=== PATIENT | male | born 1940 | race Caucasian/White ===

== ENCOUNTER 2024-06-06 10:13 | Outpatient (AMB) | payer MEDICARE, SELFPAY ==
--- NOTE | 2024-06-06 10:16 | A.OFFVIS_ITS ---
Vital Signs 06/06/24 10:20 Height 5 ft 5 in Weight 227 lb 2 oz BMI 37.8 BP 127/67 Blood Pressure Location Rt brachial Position Standing Pulse 62 Pulse Source Pulse Oximeter Pulse Oximetry (%) 97 Oxygen Delivery Method Room Air Intake Visit Reasons: Neck & Shoulder Pain w/ Numbness Intake Note: Pain today 03/31 Director Of Public Safety Required: No Accompanied by: Self / Same As Patient Allergies No Known Allergies Allergy (Verified 06/06/24 10:20) Medication List - Last Reconciled 06/06/24 by MAXIMUS Roman albuterol sulfate 90 mcg/actuation inhalation carvedilol mg PO multivitamin (One Daily Multivitamin tablet) 1 tab PO DAILY omeprazole 20 mg PO DAILY sacubitril-valsartan 24-26 mg (Entresto) 1 tab PO BID simvastatin mg PO spironolactone mg PO tamsulosin mg PO trazodone mg PO HPI HPI Neck & Shoulder Pain w/ Numbness: Details: PT- [facility] 3 months ago Location: neck radiates down left arms Duration: years Characteristics of symptom or complaint: numbness, tingling, pins and needles, aching Aggravating or associated factors: sleeping, Treatment: PT, HPI Comments Details: The patient is an 84-year-old male presenting for initial evaluation of neck and left shoulder pain with numbness and tingling in the left upper extremity, particularly during nighttime or when assuming specific positions. Denies any recent or past trauma, injury or falls. He is right hand dominant. The symptoms have persisted for a couple of years with exacerbation upon lying on the left shoulder or left side or applying pressure to the shoulder and elbow. His medical history is significant for bilateral shoulder and knee arthroplasties due to osteoarthritis, and bradycardia and cardiomyopathy management. The patient experiences neck and left shoulder discomfort with radiation into his left thumb, 2nd and 3rd fingers pain with numbness and tingling. He occasionally experiences similar symptoms with his right hand and fingers. Patient reports i ncreased left upper extremity paresthesia at the elbow and wrist if he flexes his left elbow and presses against hard surfaces, or holds his phone for over one minute or less. Reports functional discomfort but maintains activity without need for regular analgesics. Physical therapy has provided temporary relief of muscle tightness, now recurrent intermittently. Denies any fever or chills, shortness of breaths, chest pain or tightness, rash, swelling, gait instability or imbalances, bladder or bowel dysfunction or saddle anesthesia. Reports increased left upper extremity weakness with dropping objects with numbness and tingling of his left arm and hand. Patient reports he also undergoes Orthopedic provider at [facility] and might undergo left shoulder MRI for his ongoing symptoms. Oswestry Neck Disability Index Score=4 - Onset and Timing: Progressive over years, primarily nighttime - Quality and Character: Numbness and tingling at left elbow and left wrist and left thumb, 2-3rd digits - Location: Entire left arm, shoulder, extends to trapezius and cervical paraspinals on the left - Exacerbating Factors: Lying on left side, pressure on shoulder/elbow - Relieving Factors: Lifting arms above head, physical therapy, activity modifications - Interference: Nighttime discomfort, interrupted sleep - Affect: Patient describes irritation, especially impacting sleep, but no significant mood disturbances reported - Analgesia: Occasional Tylenol; no regular use of pain medication reported - Adverse Effects: Patient denies taking other medications or experiencing side effects - Activities of Daily Living: No significant limitation reported, remains active though with sleep disturbances - Aberrant Drug Related Behaviors: None reported, patient uses medications as directed [facility] Medical History (Updated 06/06/24 @ 16:13 by MAXIMUS Roman) Insomnia Thrombocytopenia Thoracic aortic ectasia History of prostatism Hx MRSA infection GERD (gastroesophageal reflux disease) Colon polyp Hypertension Hyperlipidemia Asthma Cardiomyopathy Osteoarthritis Chronic left shoulder pain Surgical History Hx of hernia repair (~1999) History of right shoulder replacement (~2009) History of left shoulder replacement (~2009) History of left knee replacement (~2015) H/O stapedectomy (~2016) Social History Alcohol intake: never Patient Tobacco Use Status: Never used Tobacco Review of Systems Const Details: - Nervous System: Reports left upper extremity numbness and tingling, denies neck or shoulder pain - Musculoskeletal: Reports shoulder tightness, left fingers discomfort due to arthritis - Cardiovascular: Reports history of cardiomyopathy and low pulse rate, denies dizziness All systems reviewed & are unremarkable except as noted in HPI and below Physical Exam Vital Signs: Last Vital Signs Pulse 62 06/06/24 10:20 BP 127/67 06/06/24 10:20 Pulse Ox 97 06/06/24 10:20 Oxygen Delivery Method Room Air 06/06/24 10:20 BMI result Body Mass Index 37.8 General: Appears afebrile. Alert and oriented. Mood and affect appropriate. Follows and participates in conversation appropriately. Respiratory effort is unlabored. No cough. Able to transition from sit to stand unassisted. Ambulates with bilaterally normal heel strike and toe off. Neck Neck: Yes normal visual inspection, Yes full ROM, Yes no lymphadenopathy, Yes supple, No anterior neck swelling, Yes no JVD, No prominent supraclavicular fat pad and No prominent dorsocervical fat pad Back/Spine/Pelvis Cervical Spine: cervical ROM normal, cervical muscular tenderness, No Cervical spine scars present, No cervical spasm, No Cervical spine tenderness and No step off deformity Thoracic/Lumbar Spine: thoracic and lumbar spine normal to inspection, thoraco- lumbar ROM normal, No thoracic spinal tenderness and No lumbar spinal tenderness Neuro General: moves all extremities, Normal light touch and pain sensation, no focal motor deficits, CN's II-XI intact bilaterally and deep tendon reflexes 2+ bilaterally Extrem General: Yes capillary refill normal, Yes no clubbing, cyanosis or edema and Yes no calf tenderness Left upper extremity: shoulder/upper arm Details: inspection abnormal, tenderness Location: over the biceps tendon and normal ROM; no swelling, no ecch ymosis, no crepitus and no unsual warmth Assessment & Plan Assessment & Plan (1) Cervical radiculitis: Code(s): M54.12 - Radiculopathy, cervical region Category: Medical (2) Carpal tunnel syndrome on left: Code(s): G56.02 - Carpal tunnel syndrome, left upper limb Category: Medical (3) Chronic left shoulder pain: Code(s): M25.512 - Pain in left shoulder; G89.29 - Other chronic pain Category: Medical (4) Cervical radiculitis: Code(s): M54.12 - Radiculopathy, cervical region Category: Medical (5) Carpal tunnel syndrome on left: Code(s): G56.02 - Carpal tunnel syndrome, left upper limb Category: Medical (6) Numbness and tingling of left upper extremity: Code(s): R20.0 - Anesthesia of skin; R20.2 - Paresthesia of skin Category: Medical Plan An EMG study is planned to investigate left upper extremity numbness and tingling, with a differential including carpal tunnel syndrome, ulnar neuropathy, and cervical radiculopathy. The EMG will help localize nerve compression and guide specific treatment considerations. The absence of immediate shoulder pathology was communicated, with plans to follow up with Orthopedic care based on diagnostic findings. Ongoing sleep disturbances should be addressed post-EMG findings. Script provided for gabapentin 100 mg TID. Side effects and precautions were discussed with patient. All questions and concerns have been answered and patient agreed with the plan. Follow up for EMG results and sooner as needed. Patient was informed and verbally consented to the use of an ambient scribe for clinic note documentation during this visit. Orders: Orders NE electromyogram (EMG) Today G56.02 - Carpal tunnel syndrome, left upper limb, G89.29 - Other chronic pain, M25.512 - Pain in left shoulder, M54.12 - Radiculopathy, cervical region NE nerve conduction velocity Today G56.02 - Carpal tunnel syndrome, left upper limb, G89.29 - Other chronic pain, M25.512 - Pain in left shoulder, M54.12 - Radiculopathy, cervical region Medications: New gabapentin 100 mg PO TID 90 caps 0RF pain 30 days G56.02 - Carpal tunnel syndrome, left upper limb, M54.12 - Radiculopathy, cervical region Patient Instructions: I discussed with the patient the likely diagnoses of carpal tunnel syndrome or ulnar neuropathy contributing to his nighttime upper extremity numbness. The suggested next step involves an EMG study, which will localize the nerve compression and inform targeted treatment approaches. Risks, benefits, and alternatives of further neurological testing were thoroughly discussed, including the noninvasive nature of the EMG and potential direct benefits in identifying the exact nerve impacted. Coordination with Orthopedics following the EMG was outlined should surgical options or further interventions be warranted. The patient understood and was agreeable with the plan; with a prompt follow-up post-results also arranged. Coding Level of Care Code New Pt Level 4 (94171) Complex EM visit Add On G2211 Diagnoses Cervical radiculitis M54.12 Carpal tunnel syndrome on left G56.02 Chronic left shoulder pain M25.512; G89.29 Numbness and tingling of left upper extremity R20.0; R20.2
[2024-06-06 10:20] VITALS: BP 127/67; PULSE 62; O2SAT 97; BMI 37.8
--- OUTSIDE RECORDS SUMMARY | 2024-06-06 11:47 | XMS_ITS | Clinical Summary ---
Author Organization [address] [place] [address] [place] [phone] Phone Care Team Providers Care Prosecuting Attorney Name Role Phone Feliciano Yang MD Primary Care Provider [phone] [phone] Allergies No known active allergies Medications aspirin 81 mg EC tablet Take 1 Tablet by mouth daily. 12/24/2021 Active B complex tablet Take by mouth daily. Active carvediloL (COREG) 3.125 mg tablet Take 1 Tablet by mouth 2 times daily. Active sacubitriL-valsa rtan (Entresto) 24-26 mg per tablet Take 24-26 mg by mouth 2 times daily. 07/16/2021 Active simvastatin (ZOCOR) 10 mg tablet Take 10 mg by mouth at bedtime. Active spironolactone (ALDACTONE) 25 mg tablet Take 1 Tablet by mouth daily. Active tamsulosin (FLOMAX) 0.4 mg 24 hr capsule Take 0.4 mg by mouth daily. Take 30 mins after same meal every day. Active Active Problems Problem Noted Date Diagnosed Date Ascending aortic aneurysm 07/16/2021 Bradycardia by electrocardiogram 05/07/2021 Cardiomyopathy 05/07/2021 Hyperlipidemia 05/07/2021 PAC (premature atrial contraction) 05/07/2021 Pain in both lower extremities 05/07/2021 Primary hypertension 05/07/2021 PVC (premature ventricular contraction) 05/07/19 22 Encounters Date Type Department Care Team Description 03/21/2024 Telephone [facility] Cardiology [facility] [address] [place] [phone] Jorge Luis Jeffery MD Nuclear Study Results 03/20/2024 Telephone [facility] [address] [place] [phone] Jorge Luis Jeffery MD Results from Last 3 Months Social History Tobacco Use Types Packs/Day Years Used Date Smoking Tobacco: Never Smokeless Tobacco: Never Alcohol Use Standard Drinks/Week Comments Never 0 (1 standard drink = 0.6 oz pur e alcohol) Sex and Gender Information Value Date Recorded Sex Assigned at Not on file Legal Sex Male 6:14 AM EST Gender Identity Not on file Sexual Orientation Not on file Obstetrics History Last Filed Vital Signs Vital Sign Reading Time Taken Comments Blood Pressure 110/58 10/26/2023 2:33 PM EDT Pulse 45 10/26/2023 2:33 PM EDT Temperature - - Respiratory Rate - - Oxygen Saturation - - Inhaled Oxygen Concentration - - Weight 103 kg (228 lb) 03/06/2024 9:51 AM EST Height 167.6 cm (5' 6 ) 03/06/2024 9:51 AM EST Body Mass Index 36.8 03/06/2024 9:51 AM EST Plan of Treatment Upcoming Encounters Date Type Department Care Team (Late st Contact Info) Description 07/24/2024 9:50 AM EDT Office Visit [facility] [address] [place] [phone] Jorge Luis Jeffery MD [address] [place] [address],[address] [address] Health Maintenance Due Date Last Done Comments Zoster Vaccines (1 of 2) 1992 RSV Immunization Patients 60+ Years Old (1 - 1-dose 75+ series) 2017 Cholesterol Screening (Lipid Panel) 02/22/2022 Depression Screening 02/22/2022 Falls Risk Assessment 02/22/2022 Social Influencers of Health Screening 02/22/2022 Hypertension/CHF/CAD Annual BMP Blood Test 03/01/2022 Medicare Annual Wellness Visit 07/28/2022 07/28/2021 COVID-19 Vaccine ( season) 2023 04/16/2021, 03/19/2021 Influenza Vaccine (#1) 2023 , 12/13/2020, 12/06/2019 DTaP,Tdap,and Td Vaccines (2 - Td or Tdap) 10/22/2032 10/22/2022 Pneumococcal Vaccine: 50+ Years Completed 07/25/2020, 03/20/2020, 03/20/2014, Additional history exists HIB Vaccines Aged Out No longer eligi ble based on patient's age to complete this topic HPV Vaccines Aged Out No longer eligi ble based on patient's age to complete this topic Hepatitis A Vaccines Aged Out No long er eligible based on patient's age to complete this topic Hepatitis B Vaccines Aged Out No long er eligible based on patient's age to complete this topic IPV Vaccines Aged Out No longer eligi ble based on patient's age to complete this topic MMR Vaccines Aged Out No longer eligi ble based on patient's age to complete this topic Meningococcal ACWY Vaccine Aged Out N o longer eligible based on patient's age to complete this topic Meningococcal B Vacine Aged Out No lo nger eligible based on patient's age to complete this topic RSV Immunization Patients Under 20 months Aged Out No longer eligible based on patient's age to complete this topic Varicella Vaccines Aged Out No longer eligible based on patient's age to complete this topic Insurance MEDICARE AARP Care Teams Prosecuting Attorney Relationship Specialty Start Date End Date Feliciano Yang MD [address] [place], [place] PCP - General Internal Medicine 05/02/21
== END 2024-06-06 10:54 | disposition home or self-care (01) ==
PROVIDERS: PCP Internal Medicine; Referring Provider Physician Assistant Medical; Visit Provider Nurse Practitioner Family
DX: M54.12 Radiculopathy, cervical region (principal); M25.512 Pain in left shoulder; G89.29 Other chronic pain; R20.0 Anesthesia of skin; R20.2 Paresthesia of skin
CPT/HCPCS: 99204; G2211

== ENCOUNTER → 2024-06-06 10:13 | Outpatient (BNVA) | payer MEDICARE, SELFPAY | PROVIDERS: PCP Internal Medicine; Referring Provider Physician Assistant Medical; Visit Provider Nurse Practitioner Family | DX: M54.12 Radiculopathy, cervical region (principal); M25.512 Pain in left shoulder; G56.02 Carpal tunnel syndrome, left upper limb; G89.29 Other chronic pain; R20.0 Anesthesia of skin; R20.2 Paresthesia of skin | CPT/HCPCS: 99202 ==

== ENCOUNTER 2024-06-30 12:37 | Outpatient (REF) | payer MEDICARE, SELFPAY ==
--- NOTE | 2024-06-30 12:44 | EMG_ITS ---
Chief complaint: Left 1st and 2nd digit numbness, denies numbness or right, denies neck pain Reason for referral: Evaluate for Carpal Tunnel Syndrome versus radiculopathy Referred by: Candace Leong NP Procedure done: Bilateral upper extremities NCS/EMG Precautions and/or limitations: None The limb temperature was monitored continuously and remained between 32-36 degrees C during the performance of the NCS. Nerve Conduction Studies Anti Sensory Summary Table ?Stim Site NR Onset (ms) Norm Onset (ms) Peak (ms) Norm Peak (ms) O-P Amp (?V) Norm O-P Amp Site1 Site2 Delta-0 (ms) Dist (cm) Seb (m/s) Norm Seb (m/s) Left Median Anti Sensory (2nd Digit) Wrist ? 3.9 4.7 <3.6 4.9 >10 Wrist 2nd Digit 3.9 14.0 36 Right Median Anti Sensory (2nd Digit) Wrist ? 3.0 3.8 <3.6 6.4 >10 Wrist 2nd Digit 3.0 21.5 72 Left Radial Anti Sensory (Thumb) Forearm ? 1.4 2.3 <3.1 20.9 Forearm Thumb 1.4 0.0 Left Ulnar Anti Sensory (5th Digit) Wrist ? 1.4 3.6 <3.7 17.5 >15.0 Wrist 5th Digit 1.4 14.0 100 Right Ulnar Anti Sensory (5th Digit) Wrist ? 2.0 3.7 <3.7 9.0 >15.0 Wrist 5th Digit 2.0 14.0 70 Motor Summary Table ?Stim Site NR Onset (ms) Norm Onset (ms) O-P Amp (mV) Norm O-P Amp iAmp (mV) Amp (1st) (%) Site1 Site2 Delta-0 (ms) Dist (cm) Seb (m/s) Norm Seb (m/s) Left Median Motor (Abd Poll Brev) Wrist ? 7.6 <3.9 3.7 >4.5 4.4 100.0 Elbow Wrist 5.8 20.5 35 >45 Elbow ? 13.4 3.4 3.9 91.9 Right Median Motor (Abd Poll Brev) Wrist ? 4.5 <3.9 8.2 >4.5 10.3 100.0 Elbow Wrist 4.4 22.0 50 >45 Elbow ? 8.9 7.0 8.8 85.4 Left Ulnar Motor (Abd Dig Minimi) Wrist ? 2.9 <3.0 8.4 >5 10.1 100.0 B Elbow Wrist 4.0 20.0 50 >45 B Elbow ? 6.9 8.3 10.1 98.8 A Elbow B Elbow 1.8 10.0 56 >45 A Elbow ? 8.7 8.3 10.1 98.8 Right Ulnar Motor (Abd Dig Minimi) Wrist ? 3.0 <3.0 7.7 >5 9.6 100.0 B Elbow Wrist 3.8 19.0 50 >45 B Elbow ? 6.8 7.6 9.3 98.7 A Elbow B Elbow 1.6 10.0 62 >45 A Elbow ? 8.4 7.4 8.9 96.1 EMG ?Side Muscle Nerve Root Ins Act Fibs Psw Amp Dur Poly Recrt Int Pat Comment Right 1stDorInt Ulnar C8-T1 Nml Nml Nml Nml Nml 0 Nml Complete Right FlexCarRad Median C6-7 Nml Nml Nml Nml Nml 0 Nml Complete Right Biceps Musculocut C5-6 Nml Nml Nml Nml Nml 0 Nml Complete Right Triceps Radial C6-7-8 Nml Nml Nml Nml Nml 0 Nml Complete Right Deltoid Axillary C5-6 Nml Nml Nml Nml Nml 0 Nml Complete Left 1stDorInt Ulnar C8-T1 Nml Nml Nml Nml Nml 0 Nml Complete Left FlexCarRad Median C6-7 Nml Nml Nml Nml Nml 0 Nml Complete Left Biceps Musculocut C5-6 Nml Nml Nml Nml Nml 0 Nml Complete Left Triceps Radial C6-7-8 Nml Nml Nml Nml Nml 0 Nml Complete Left Deltoid Axillary C5-6 Nml Nml Nml Nml Nml 0 Nml Complete FINDINGS: Left median motor nerve showed prolonged distal latency, small amplitude and slow conduction velocity. Right median motor nerve showed prolonged distal latency, normal amplitude and normal conduction velocity. Bilateral median sensory nerve showed prolonged peak latency. All other nerves tested were within normal. Concentric needle EMG was performed in selected muscles of the bilateral upper extremities. Study did not reveal signs of electric abnormalities as shown in the table above. IMPRESSION: 1. This is an abnormal study. 2. There is electrodiagnostic evidence for bilateral moderate-severe median neuropathy at the wrist, consistent with carpal tunnel syndrome, left worse than right. 3. There is no electrodiagnostic evidence for ulnar neuropathy, brachial plexopathy, or cervical radiculopathy. Thank you for your kind referral. Jailene Castellon MD, KIM Board Certified, [place] [employer] and Rehabilitation (ABPMR) Board Certified, [place] Board of Electrodiagnostic Medicine (ABEM) CODIN [phone] x 2 MTDD
--- OUTSIDE RECORDS SUMMARY | 2024-06-30 13:14 | XMS_ITS | Encounter Summary ---
Author Organization [facility] Address [address] [place] [address] Care Team Providers Care Educational Interpreter Name Role Phone Feliciano Yang MD Primary Care Provider [phone] Reason for Visit * Reason Onset Date Comments Med Refill 06/08/2024 Entresto Encounter Details Date Type Department Care Team (Late st Contact Info) Description 06/08/2024 Telephone [facility] Cardiology [address] [phone] Jorge Luis Jeffery MD [address] [place] [address],[address] [id number] Med Refill (Entresto) Social History Tobacco Use Types Packs/Day Years Used Date Smoking Tobacco: Never Smokeless Tobacco: Never Alcohol Use Standard Drinks/Week Comments Never 0 (1 standard drink = 0.6 oz pur e alcohol) Sex and Gender Information Value Date Recorded Sex Assigned at Not on file Legal Sex Male 6:14 AM EST Gender Identity Not on file Sexual Orientation Not on file documented as of this encounter Ordered Prescriptions Prescription Sig Dispense Quantity Refills Last Filled Start Date End Date sacubitriL-valsarta n (Entresto) 24-26 mg per tablet Take 1 tablet by mouth 2 (two) times a day. 180 tablet 1 06/08/2024 documented in this encounter Progress Notes * Jayla Park RN - 06/08/2024 11:32 AM EDT Images from the original note were not included. FIORDALIZA 10/26/23, next 07/24/24 CMP 10/27/23 Entresto refills sent * Sloan Lee - 06/08/2024 11:23 AM EDT Refill request for Entresto 24 mg twice a day, 90 day supply to [facility]. documented in this encounter Plan of Treatment Upcoming Encounters Date Type Department Care Team (Late st Contact Info) Description 07/24/2024 9:50 AM EDT Office Visit [facility] Cardiology [address] [place] [address] Jorge Luis Jeffery MD [address] [place] [address],[facility] [address] [place] [address] documented as of this encounter Visit Diagnoses Not on filedocumented in this encounter Discontinued Medications Medication Sig Discontinue Reason Start Date End Da te sacubitriL-valsartan (Entresto) 24-26 mg per tablet Take 24-26 mg by mouth 2 times daily. Reorder 07/16/2021 06/08/2024 documented as of this encounter Care Teams Educational Interpreter Relationship Specialty Start Date End Date Feliciano Yang MD [address] [facility] [address] [place], [place] PCP - General Internal Medicine 05/02/21 documented as of this encounter
--- OUTSIDE RECORDS SUMMARY | 2024-06-30 13:14 | XMS_ITS | Clinical Summary ---
Author Organization [address] [place] [address] [place] [phone] Phone Care Team Providers Care Shipping Processor Name Role Phone Feliciano Yang MD Primary Care Provider [phone] Allergies No known active allergies Medications aspirin 81 mg EC tablet Take 1 Tablet by mouth daily. 2 Active B complex tablet Take by mouth daily. Active carvediloL (COREG) 3.125 mg tablet Take 1 Tablet by mouth 2 times daily. Active simvastatin (ZOCOR) 10 mg tablet Take 10 mg by mouth at bedtime. Active spironolactone (ALDACTONE) 25 mg tablet Take 1 Tablet by mouth daily. Active tamsulosin (FLOMAX) 0.4 mg 24 hr capsule Take 0.4 mg by mouth daily. Take 30 mins after same meal every day. Active sacubitriL-vals oskar (Entresto) 24-26 mg per tablet Take 1 tablet by mouth 2 (two) times a day. 180 tablet 1 5 Active sacubitriL-vals oskar (Entresto) 24-26 mg per tablet Take 24-26 mg by mouth 2 times daily. 2 06/09/19 25 Discontinu ed(Reorder ) Active Problems Problem Noted Date Diagnosed Date Ascending aortic aneurysm (CMS/HCC V24) 07/17/19 Bradycardia by electrocardiogram 05/07/2021 Cardiomyopathy (CMS/HCC V24, CMS/HCC V28) 2021 Hyperlipidemia 05/07/2021 PAC (premature atrial contraction) 05/07/2021 Pain in both lower extremities 05/07/2021 Primary hypertension 05/07/2021 PVC (premature ventricular contraction) 05/07/19 22 Encounters Date Type Department Care Team Description 06/08/2024 Telephone [facility] Cardiology [facility] [address] [place] [phone] Jorge Luis Jeffery MD Med Refill (Entresto) from Last 3 Months Social History Tobacco [...] Description 07/24/2024 9:50 AM EDT Office Visit [facility] Cardiology [facility] [address] [place] [address] Jorge Luis Jeffery MD [address] [place] [address],[address] [address] Health Maintenance Due Date Last Done Comments Zoster Vaccines (1 of 2) 1992 RSV Immunization Adult Patients (1 - 1-dose 75+ series) 2017 Cholesterol Screening (Lipid Panel) 02/22/2022 Depression Screening 02/22/2022 Falls Risk Assessment 02/22/2022 Social Influencers of Health Screening 02/22/2022 Hypertension/CHF/CAD Annual BMP Blood Test 03/01/2022 Medicare Annual Wellness Visit 07/28/2022 07/28/2021 COVID-19 Vaccine ( - season) 2023 04/16/2021, 03/19/2021 Influenza Vaccine (Season Ended) 2024 02/19/2021, 12/13/2020, 12/06/2019 DTaP,Tdap,and Td Vaccines (2 - [...] age to complete this topic Meningococcal B Vaccine Aged Out No l onger eligible based on patient's age to complete this topic RSV Immunization Patients Under 20 months Aged Out No longer eligible based on patient's age to complete this topic Varicella Vaccines Aged Out No longer eligible based on patient's age to complete this topic Insurance MEDICARE AAR Care Teams Shipping Processor Relationship Specialty Start Date End Date Feliciano Yang MD [address] PCP - General Internal Medicine 05/02/21
== END 2024-06-30 12:38 | disposition home or self-care (01) ==
LOC: HO.NEURO 12:37
PROVIDERS: PCP Internal Medicine; Visit Provider Nurse Practitioner Family
DX: G56.13 Other lesions of median nerve, bilateral upper limbs (principal); M54.12 Radiculopathy, cervical region; M25.512 Pain in left shoulder; G56.02 Carpal tunnel syndrome, left upper limb
CPT/HCPCS: 95860; 95886; 95911

== ENCOUNTER → 2024-06-30 12:44 | Outpatient (BNV) | payer MEDICARE, SELFPAY | PROVIDERS: PCP Internal Medicine; Visit Provider Physical Medicine & Rehabilitation | DX: G56.03 Carpal tunnel syndrome, bilateral upper limbs (principal) | CPT/HCPCS: 95886; 95911 ==